=== PATIENT | female | born 1985 | race Caucasian/White ===

== ENCOUNTER 2017-07-09 18:41 | Emergency (ER) | payer SELFPAY ==
[~2017-07-09] VITALS: Ht 154.9 cm; Wt 73.0 kg
[2017-07-09 18:46] VITALS: BP 106/97
== END 2017-07-10 01:13 | disposition left against medical advice (07) ==
LOC: ER 18:41
DX: Z53.21 Procedure and treatment not carried out due to patient leaving prior to being seen by health care provider (principal)